=== PATIENT | female | born 1990 | race Caucasian/White ===

== ENCOUNTER 2019-12-11 09:06 | Inpatient (IN) | payer MEDICAID ==
[2019-12-04 15:47] LABS: BASOPHILS # (AUTO) 0.1 X10'3 (0-0.2); BASOPHILS % (AUTO) 0.8 % (0-1); EOSINOPHILS # (AUTO) 0.1 X10'3 (0-0.9); EOSINOPHILS % (AUTO) 0.7 % (0-6); LYMPHOCYTES # (AUTO) 1.4 X10'3 (1.1-4.8); LYMPHOCYTES % (AUTO) 20.8 % (21-51); MEAN CORPUSCULAR HEMOGLOBIN 29.7 PG (27.0-31.0); MEAN CORPUSCULAR HGB CONC 33.2 g/dL (33.0-36.5); MEAN CORPUSCULAR VOLUME 89.3 FL (78-98); MEAN PLATELET VOLUME 9.6 FL (7.4-10.4); MONOCYTES # (AUTO) 0.7 X10'3 (0-0.9); MONOCYTES % (AUTO) 10.5 % (2-12); NEUTROPHILS # (AUTO) 4.6 X10'3 (1.8-7.7); NEUTROPHILS % (AUTO) 67.2 % (42-75); PRE OP HEMATOCRIT 41.5 % (35.0-45.0); PRE OP HEMOGLOBIN 13.8 g/dL (12.0-16.0); PRE OP PLATELET COUNT 251 X10'3 (140-440); RED BLOOD COUNT 4.65 X10'6 (4.20-5.60); RED CELL DISTRIBUTION WIDTH 14.4 % (11.5-14.5)
[2019-12-04 16:01] LABS: PRE OP PROTIME 10.4 SECONDS (9.0-12.0)
[2019-12-04 16:05] LABS: ALBUMIN 3.6 G/DL (3.4-5.0); ALBUMIN/GLOBULIN RATIO 1.1 (1.1-1.5); ALKALINE PHOSPHATASE 68 IU/L (46-116); BLOOD UREA NITROGEN 11 MG/DL (7-18); BUN/CREATININE RATIO 11.8 (6.6-38.0); CALCIUM 8.8 MG/DL (8.5-10.1); CHLORIDE 104 MMOL/L (99-107); CREATININE 0.93 MG/DL (0.40-0.90); PRE OP ALT 23 U/L (30-65); PRE OP ANION GAP 7 (8-16); PRE OP AST 21 U/L (10-37); PRE OP BILIRUB, TOTAL 0.8 MG/DL (0.0-1.0); PRE OP GLUCOSE 66 MG/DL (70-104); PRE OP POTASSIUM 3.6 MMOL/L (3.4-5.1); PRE OP SODIUM 141 MMOL/L (135-145); TOTAL CARBON DIOXIDE 30.3 MMOL/L (24-32); TOTAL PROTEIN 6.9 G/DL (6.4-8.2); eGFR 71 ML/MIN
[2019-12-04 16:35] LABS: HCG SERUM QL NEGATIVE
[~2019-12-11] VITALS: Ht 175.3 cm; Wt 75.0 kg
[2019-12-11] VITALS (22 sets, daily range): BP systolic 65–149; BP diastolic 42–88
[~2019-12-11 09:06] MED LIST: NO HOME MEDS; albuterol 2.5 MG/3 ML nebule NEB ONE; ceFAZolin 2gm in dextrose, iso 50 ML IV ONE; famotidine 20mg tablet PO ONE
[2019-12-11] MEDS: ringers solution, lacted 1,000 ML IV SCH ×2 (09:50→20:21)
[2019-12-11] MEDS: morphine 4 MG/ML inj SYRINge IV PRN ×2 (12:56→13:14)
--- NOTE | 2019-12-11 13:15 | NUR ---
PT SURGERY TIME DELAYED. PT CRYING/ANXIOUS, C/O 10/10 LEFT LOWER ABD/FLANK PAIN. DR WALDROP NOTIFIED. MEDICATED IV X2 FOR PAIN WITH GOOD RELIEF. CURRENTLY STATES ADEQUATE PAIN RELIEF 4/10 SCALE. CALM AFFECT, ON PHONE COMMUNICATING WITH FAMILY MEMBERS.
[2019-12-11] MEDS ORDERED: BUPIVAcaine/PF 2.5 mg/ml (0.25%) 30ml vial ONE (13:19)
[2019-12-11] MEDS ORDERED: BUPIVACAINE liposomal/PF 13.3 MG/ML vial IM ONE (13:19)
[2019-12-11] MEDS ORDERED: midazolam 2 mg/2 ml injection ONE (13:33)
[2019-12-11] MEDS ORDERED: LIDOcaine 2% (20mg/ml) 5ml vial ONE (13:33)
[2019-12-11] MEDS ORDERED: fentaNYL /PF 50mcg/ml 5ml ampule ONE (13:33)
[2019-12-11] MEDS ORDERED: ondansetron/PF 4mg/2ml inj ONE (13:34)
[2019-12-11] MEDS ORDERED: rocuronium 10mg/ml inj IV ONE ×2 (13:34→16:50)
[2019-12-11] MEDS ORDERED: propofol inj 20 ML IV ONE (13:34)
[2019-12-11] MEDS ORDERED: ringers solution, lacted 1,000 ML IV SCH (13:36)
[2019-12-11] MEDS ORDERED: fentaNYL/PF 50MCG/1 ML 2ML syringe IV PRN (13:40)
[2019-12-11] MEDS ORDERED: hydrALAZINE 20mg/ml inj. IV PRN (13:40)
[2019-12-11] MEDS ORDERED: morphine 4 MG/ML inj SYRINge IV PRN (13:40)
[2019-12-11] MEDS ORDERED: ondansetron/PF 4mg/2ml inj IV PRN ×2 (13:40→17:25)
[2019-12-11] MEDS ORDERED: morphine 2 MG/ML inj. syringe IV PRN (13:40)
[2019-12-11] MEDS ORDERED: labetalol 20mg/4ml (5mg/ml) syringe IV PRN (13:40)
--- NOTE | 2019-12-11 17:21 | NUR ---
Received from OR via BED, accompanied by Anesthesiologist DR WALDROP and report given by Anesthesiologist. PT DROWSY, ISLAND DRSG TO LEFT UPPER ABDOMEN CDI, BANDAID TO LEFT LATERAL ABDOMEN CDI, AREAS SOFT. BAE CATHETER TO GRAVITY DRAINAGE W/YELLOW URINE IN DRAINAGE BAG. Addendum: 12/11/19 at 1807 by Kristen Rodríguez RN Amended: Links added.
[2019-12-11] MEDS ORDERED: CADD PCA waste documentation MC PRN (17:25)
[2019-12-11] MEDS ORDERED: naloxone 0.4 mg/ml inj IV PRN (17:25)
[2019-12-11] MEDS: fentaNYL/PF 50MCG/1 ML 2ML syringe IV PRN ×2 (18:10→18:27)
[2019-12-11] MEDS: HYDROmorphone/NS 1 mg/ml CADD 50 ML IV SCH ×4 (18:42→23:00)
--- NOTE | 2019-12-11 19:00 | NUR ---
Received report from Kristen LOPEZ from recovery. Patient arrived at 1920 on a gurney, lactate ringer running, 2L oxygen, a/o, vss, no sighns of distress will continue to monitor
--- NOTE | 2019-12-11 19:20 | NUR ---
patient also had a cadd when arived at med/surg
--- NOTE | 2019-12-11 19:21 | NUR ---
Report called to receiving nurse. Transferred via BED, CELL PHONE AND 1 BAG OF Belongings SENT W/PT TO ROOM 340A, PAIN IMPROVING W/KRISTIN GALLEGOS, RECEIVING RN AT BEDSIDE TO RECEIVE PT, BLL, CALL LIGHT GIVEN, SIDE RAILS UP X 2. Special Issues communicated to receiving nurse. YES. Addendum: 12/11/19 at 1940 by Kristen Rodríguez RN Amended: Links added.
[2019-12-12] VITALS: BP 109/62
[2019-12-12] MEDS: HYDROmorphone/NS 1 mg/ml CADD 50 ML IV SCH ×12 (00:40→23:00)
[2019-12-12 03:49] VITALS: BP 105/62
[2019-12-12 05:16] LABS: ALBUMIN 3.1 G/DL (3.4-5.0); ANION GAP 7 (8-16); BASOPHILS % (AUTO) 0.2 % (0-1); BLOOD UREA NITROGEN 11 MG/DL (7-18); BUN/CREATININE RATIO 11.6 (6.6-38.0); CALCIUM 8.4 MG/DL (8.5-10.1); CHLORIDE 107 MMOL/L (99-107); CREATININE 0.95 MG/DL (0.40-0.90); EOSINOPHILS % (AUTO) 0 % (0-6); GLUCOSE 108 MG/DL (70-104); HEMOGLOBIN 12.4 g/dl (12.0-16.0); LYMPHOCYTES # (AUTO) 0.7 X10'3 (1.1-4.8); LYMPHOCYTES % (AUTO) 5.3 % (21-51); MEAN CORPUSCULAR HEMOGLOBIN 29.2 PG (27.0-31.0); MEAN CORPUSCULAR HGB CONC 32.7 g/dL (33.0-36.5); MEAN CORPUSCULAR VOLUME 89.3 FL (78-98); MEAN PLATELET VOLUME 10.2 FL (7.4-10.4); MONOCYTES # (AUTO) 0.9 X10'3 (0-0.9); MONOCYTES % (AUTO) 6.5 % (2-12); NEUTROPHILS # (AUTO) 11.5 X10'3 (1.8-7.7); PLATELET COUNT 247 X10'3 (140-440); POTASSIUM 4.1 MMOL/L (3.5-5.1); RED BLOOD COUNT 4.25 X10'6 (4.20-5.60); RED CELL DISTRIBUTION WIDTH 14.4 % (11.5-14.5); SODIUM 141 MMOL/L (135-145); TOTAL CARBON DIOXIDE 26.8 MMOL/L (24-32); WHITE BLOOD COUNT 13.1 X10'3 (4.5-11.0); eGFR 70 ML/MIN
--- NOTE | 2019-12-12 05:53 | NUR ---
patient was picking at her neck and removed part of the tagaderm, replaced it with a new one. Patient handled it well will continue to monitor
--- NOTE | 2019-12-12 06:33 | NUR ---
Problems reprioritized. Patient report given, questions answered & plan of care reviewed with Zahida LOPEZ.
[2019-12-12 07:00] VITALS: BP 106/51
[2019-12-12 11:48] VITALS: BP 125/79
[2019-12-12 18:00] VITALS: BP 116/58
--- NOTE | 2019-12-12 18:00 | NUR ---
Patient in room [facility]. I have received report from Zahida LOPEZ and had the opportunity to ask questions and assume patient care.
--- NOTE | 2019-12-12 18:37 | NUR ---
Problems reprioritized. Patient report given, questions answered & plan of care reviewed with micki armijo.
[2019-12-12 23:58] VITALS: BP 120/80
[2019-12-13] MEDS: HYDROmorphone/NS 1 mg/ml CADD 50 ML IV SCH ×4 (01:00→07:00)
[2019-12-13 04:33] LABS: BASOPHILS % (AUTO) 0.4 % (0-1); EOSINOPHILS % (AUTO) 0.5 % (0-6); HEMATOCRIT 33.6 % (35.0-45.0); HEMOGLOBIN 11.2 g/dl (12.0-16.0); LYMPHOCYTES # (AUTO) 1.6 X10'3 (1.1-4.8); LYMPHOCYTES % (AUTO) 32.5 % (21-51); MEAN CORPUSCULAR HEMOGLOBIN 29.5 PG (27.0-31.0); MEAN CORPUSCULAR HGB CONC 33.2 g/dL (33.0-36.5); MEAN CORPUSCULAR VOLUME 88.9 FL (78-98); MEAN PLATELET VOLUME 9.8 FL (7.4-10.4); MONOCYTES # (AUTO) 0.6 X10'3 (0-0.9); MONOCYTES % (AUTO) 11.5 % (2-12); NEUTROPHILS # (AUTO) 2.7 X10'3 (1.8-7.7); NEUTROPHILS % (AUTO) 55.1 % (42-75); PLATELET COUNT 170 X10'3 (140-440); RED BLOOD COUNT 3.78 X10'6 (4.20-5.60)
[2019-12-13 04:42] LABS: ALBUMIN 2.9 G/DL (3.4-5.0); ANION GAP 3 (8-16); BLOOD UREA NITROGEN 7 MG/DL (7-18); BUN/CREATININE RATIO 8.5 (6.6-38.0); CALCIUM 8.4 MG/DL (8.5-10.1); CHLORIDE 107 MMOL/L (99-107); CREATININE 0.82 MG/DL (0.40-0.90); GLUCOSE 89 MG/DL (70-104); POTASSIUM 3.6 MMOL/L (3.5-5.1); SODIUM 141 MMOL/L (135-145); eGFR 82 ML/MIN
--- NOTE | 2019-12-13 06:25 | NUR ---
Problems reprioritized. Patient report given, questions answered & plan of care reviewed with Alison LOPEZ.
--- NOTE | 2019-12-13 06:33 | NUR ---
Patient in room [facility]. I have received report from Jackelyn LOPEZ and had the opportunity to ask questions and assume patient care.
[2019-12-13] MEDS ORDERED: docusate sod 250mg capsule PO SCH (08:00)
[2019-12-13] MEDS ORDERED: HYDR-4383 PO (08:14)
[2019-12-13 09:01] VITALS: BP 105/55
--- NOTE | 2019-12-13 11:10 | NUR ---
Patient discharge. Assisted to lobby, ambulated independently with tech. Patient IV discontinued, patient tolerated well, no issues. All education completed with verbal acknowledgement completed. Patient with scrip from MD in hand for pain medication, copy in chart. Patient has all belongings.
--- NOTE | 2019-12-13 11:10 | NUR ---
DC left PIV & Central line, both were intact. pt tolerated removal of central line well.
== END 2019-12-13 11:28 | disposition home or self-care (01) | DRG 443 ==
LOC: UNDOADMIN 09:06 → PAS IN 09:06 → EDSTATUS 10:45 → PAS IN 17:24 → SUR 3N 19:20 → PAS IN 19:20
PROVIDERS: ADMIT Urology; ATTEND Urology
PROC: 3E0T3BZ Introduction of Anesthetic Agent into Peripheral Nerves and Plexi, Percutaneous Approach (ICD-10-PCS; 2019-12-11)
PROC: 02HV33Z Insertion of Infusion Device into Superior Vena Cava, Percutaneous Approach (ICD-10-PCS; 2019-12-11)
PROC: B548ZZA Ultrasonography of Superior Vena Cava, Guidance (ICD-10-PCS; 2019-12-11)
PROC: 03HY32Z Insertion of Monitoring Device into Upper Artery, Percutaneous Approach (ICD-10-PCS; 2019-12-11)
PROC: 4A133B1 Monitoring of Arterial Pressure, Peripheral, Percutaneous Approach (ICD-10-PCS; 2019-12-11)
PROC: 4A133J1 Monitoring of Arterial Pulse, Peripheral, Percutaneous Approach (ICD-10-PCS; 2019-12-11)
PROC: 0TT14ZZ Resection of Left Kidney, Percutaneous Endoscopic Approach (ICD-10-PCS; principal; 2019-12-11 13:40)
DX: N13.1 Hydronephrosis with ureteral stricture, not elsewhere classified (principal)
CPT/HCPCS: 36415; 71045; 71046; 80048; 80053; 82948; 84703; 85025; 85610; 85730; 86885; 86900; 86901; 87081; 93005; A4215; A4618; A7000; C1751; C1758; C9290; G0378; J1170; J2001; J2250; J2270; J2405; J2704; J3010; J3490; J7030; J7120

== ENCOUNTER 2020-04-09 11:05 | Emergency (ER) | payer MEDICAID ==
[~2020-04-09] VITALS: Ht 175.3 cm; Wt 75.0 kg
[~2020-04-09 11:05] MED LIST changes: +HYDR-4383 PO; -albuterol 2.5 MG/3 ML nebule NEB ONE; -ceFAZolin 2gm in dextrose, iso 50 ML IV ONE; -famotidine 20mg tablet PO ONE
[2020-04-09] MEDS ORDERED: LORazepam 2 mg/ml vial IM ONE (12:05)
--- NOTE | 2020-04-09 12:35 | NUR ---
PT TO CT VIA [facility] WITH PROFESSOR OF BIOSTATISTICS
[2020-04-09 12:53] LABS: BASOPHILS # (AUTO) 0.1 X10'3 (0-0.2); BASOPHILS % (AUTO) 0.8 % (0-1); EOSINOPHILS # (AUTO) 0.1 X10'3 (0-0.9); EOSINOPHILS % (AUTO) 1.6 % (0-6); HEMATOCRIT 38.9 % (35.0-45.0); HEMOGLOBIN 12.6 g/dl (12.0-16.0); LYMPHOCYTES # (AUTO) 1.4 X10'3 (1.1-4.8); LYMPHOCYTES % (AUTO) 15.9 % (21-51); MEAN CORPUSCULAR HEMOGLOBIN 29.4 PG (27.0-31.0); MEAN CORPUSCULAR HGB CONC 32.5 g/dL (33.0-36.5); MEAN CORPUSCULAR VOLUME 90.6 FL (78-98); MEAN PLATELET VOLUME 10.4 FL (7.4-10.4); MONOCYTES # (AUTO) 0.6 X10'3 (0-0.9); MONOCYTES % (AUTO) 6.3 % (2-12); NEUTROPHILS # (AUTO) 6.5 X10'3 (1.8-7.7); NEUTROPHILS % (AUTO) 75.4 % (42-75); PLATELET COUNT 190 X10'3 (140-440); RED BLOOD COUNT 4.29 X10'6 (4.20-5.60); RED CELL DISTRIBUTION WIDTH 15.3 % (11.5-14.5); WHITE BLOOD COUNT 8.7 X10'3 (4.5-11.0)
[2020-04-09 13:06] LABS: ALANINE AMINOTRANSFERASE 17 U/L (12-78); ALBUMIN 3.1 G/DL (3.4-5.0); ALBUMIN/GLOBULIN RATIO 1.1 (1.1-1.5); ALKALINE PHOSPHATASE 64 IU/L (46-116); ANION GAP 10 (8-16); ASPARTATE AMINO TRANSFERASE 16 U/L (10-37); BILIRUBIN,TOTAL 0.2 MG/DL (0.1-1.0); BLOOD UREA NITROGEN 14 MG/DL (7-18); BUN/CREATININE RATIO 17.3 (6.6-38.0); CALCIUM 7.9 MG/DL (8.5-10.1); CHLORIDE 113 MMOL/L (99-107); CREATININE 0.81 MG/DL (0.40-0.90); GLUCOSE 79 MG/DL (70-104); POTASSIUM 4.2 MMOL/L (3.5-5.1); SODIUM 145 MMOL/L (135-145); TOTAL CARBON DIOXIDE 22.2 MMOL/L (24-32); eGFR 84 ML/MIN
--- NOTE | 2020-04-09 13:49 | NUR ---
[facility] CALLED [phone] THEY ARE SENDING SOMEONE TO [facility].
[2020-04-09 13:53] VITALS: BP 151/76
== END 2020-04-09 14:36 | disposition home or self-care (01) ==
LOC: ER 11:05
DX: G40.909 Epilepsy, unspecified, not intractable, without status epilepticus (principal); R52 Pain, unspecified; F15.90 Other stimulant use, unspecified, uncomplicated; Z86.69 Personal history of other diseases of the nervous system and sense organs; Z72.89 Other problems related to lifestyle; Z79.899 Other long term (current) drug therapy
CPT/HCPCS: 36415; 70450; 72125; 80053; 85025; 93005; 96372; 99285; J2060

== ENCOUNTER 2020-04-17 21:18 | Emergency (ER) | payer MEDICAID ==
[~2020-04-17] VITALS: Ht 175.3 cm; Wt 77.3 kg
--- NOTE | 2020-04-17 21:20 | NUR ---
cervical collar in place from EMS
--- NOTE | 2020-04-17 21:33 | NUR ---
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
--- NOTE | 2020-04-17 21:35 | NUR ---
patient denies positive covid result on 04/06/20 [facility]
[2020-04-17] MEDS ORDERED: acetaminophen 325mg tablet PO ONE (21:55)
[2020-04-17 21:59] LABS: BASOPHILS # (AUTO) 0.1 X10'3 (0-0.2); BASOPHILS % (AUTO) 0.9 % (0-1); EOSINOPHILS # (AUTO) 0.1 X10'3 (0-0.9); EOSINOPHILS % (AUTO) 0.8 % (0-6); HEMATOCRIT 36.7 % (35.0-45.0); HEMOGLOBIN 12.2 g/dl (12.0-16.0); LYMPHOCYTES # (AUTO) 2.1 X10'3 (1.1-4.8); LYMPHOCYTES % (AUTO) 27.2 % (21-51); MEAN CORPUSCULAR HEMOGLOBIN 29.5 PG (27.0-31.0); MEAN CORPUSCULAR HGB CONC 33.2 g/dL (33.0-36.5); MEAN CORPUSCULAR VOLUME 88.7 FL (78-98); MEAN PLATELET VOLUME 9.6 FL (7.4-10.4); MONOCYTES # (AUTO) 0.5 X10'3 (0-0.9); MONOCYTES % (AUTO) 6.2 % (2-12); NEUTROPHILS # (AUTO) 4.9 X10'3 (1.8-7.7); NEUTROPHILS % (AUTO) 64.9 % (42-75); PLATELET COUNT 253 X10'3 (140-440); RED BLOOD COUNT 4.14 X10'6 (4.20-5.60); RED CELL DISTRIBUTION WIDTH 15.4 % (11.5-14.5); WHITE BLOOD COUNT 7.6 X10'3 (4.5-11.0)
[2020-04-17 22:15] LABS: ALANINE AMINOTRANSFERASE 30 U/L (12-78); ALBUMIN 3.2 G/DL (3.4-5.0); ALBUMIN/GLOBULIN RATIO 1.1 (1.1-1.5); ALKALINE PHOSPHATASE 70 IU/L (46-116); ANION GAP 6 (8-16); ASPARTATE AMINO TRANSFERASE 13 U/L (10-37); BILIRUBIN,TOTAL 0.1 MG/DL (0.1-1.0); BLOOD UREA NITROGEN 21 MG/DL (7-18); BUN/CREATININE RATIO 26.9 (6.6-38.0); CALCIUM 8.8 MG/DL (8.5-10.1); CHLORIDE 109 MMOL/L (99-107); CREATININE 0.78 MG/DL (0.40-0.90); GLUCOSE 99 MG/DL (70-104); POTASSIUM 3.6 MMOL/L (3.5-5.1); SODIUM 142 MMOL/L (135-145); TOTAL CARBON DIOXIDE 26.9 MMOL/L (24-32); TOTAL PROTEIN 6.2 G/DL (6.4-8.2); eGFR 87 ML/MIN
[2020-04-17 22:26] LABS: ETHANOL < 0.010 GM/DL (0.0-0.010)
[2020-04-17] MEDS ORDERED: ketorolac trometh. 30mg/ml inj. IV ONE (22:30)
[2020-04-17] MEDS ORDERED: LORazepam 2 mg/ml vial IV ONE (22:30)
--- NOTE | 2020-04-17 22:49 | NUR ---
Pt went to CT.
[2020-04-17] MEDS ORDERED: LEVE10006 PO (23:02)
[2020-04-17] MEDS ORDERED: HYDR-3686 PO (23:02)
[2020-04-17 23:11] LABS: URINE HCG NEGATIVE (NEG)
[2020-04-17 23:13] LABS: CLARITY,URINE SLIGHTLY CLOUDY (Clear); COLOR,URINE YELLOW (Yellow); GLUCOSE, URINE NEGATIVE (Neg); KETONES,URINE NEGATIVE (Neg); LEUKOCYTE ESTERASE ,URINE SMALL (Neg); NITRITES, URINE NEGATIVE (Neg); OCCULT BLOOD,URINE NEGATIVE (Neg); PROTEIN,URINE NEGATIVE (Neg); UROBILINOGEN,URINE 0.2 E.U/dL (0.2-1.0)
[2020-04-17 23:20] LABS: UA COLLECTION TYPE VOIDED
[2020-04-17 23:21] LABS: BACTERIA,URINE FEW /HPF (Neg); RBC,URINE 0-2 /HPF (0-2); SQUAMOUS EPITHELIAL CELL,UR FEW /LPF (FEW); WBC CLUMPS,URINE FEW /HPF (NEGATIVE); WBC,URINE 20-30 /HPF (0-4)
[2020-04-17 23:40] LABS: URINE AMPHETAMINE SCREEN NEGATIVE (Neg); URINE BARBITUATE SCREEN NEGATIVE (Neg); URINE BENZODIAZEPINES SCREEN NEGATIVE (Neg); URINE CANNABINOID SCREEN NEGATIVE (Neg); URINE COCAINE SCREEN NEGATIVE (Neg); URINE METHADONE SCREEN NEGATIVE (Neg); URINE OPIATE SCREEN NEGATIVE (Neg); URINE PHENCYCLIDINE SCREEN NEGATIVE (Neg)
[2020-04-18 00:42] VITALS: BP 107/52
[2020-04-20] MEDS ORDERED: CHLO25CA10 PO (13:01)
[2020-04-20] MEDS ORDERED: QUET50TA PO (13:01)
== END 2020-04-18 00:45 | disposition home or self-care (01) ==
LOC: ER 21:18
DX: T14.90XA Injury, unspecified, initial encounter (principal); R56.9 Unspecified convulsions; M54.2 Cervicalgia; M54.5 Low back pain; F17.200 Nicotine dependence, unspecified, uncomplicated; F15.10 Other stimulant abuse, uncomplicated; Z79.899 Other long term (current) drug therapy; W18.39XA Other fall on same level, initial encounter; Y93.89 Activity, other specified; Y92.89 Other specified places as the place of occurrence of the external cause; Y99.8 Other external cause status
CPT/HCPCS: 36415; 70450; 72100; 72125; 80053; 80305; 80320; 81001; 81025; 85025; 87077; 87088; 87186; 93005; 96374; 96375; 99285; J1885; J2060

== ENCOUNTER 2020-04-26 12:25 | Emergency (ER) | payer MEDICAID ==
[~2020-04-26] VITALS: Ht 175.3 cm; Wt 90.0 kg
[~2020-04-26 12:25] MED LIST changes: +CHLO25CA10 PO; +HYDR-3686 PO; -HYDR-4383 PO; +LEVE10006 PO; -NO HOME MEDS; +QUET50TA PO
[2020-04-26 13:24] VITALS: BP 155/85
--- NOTE | 2020-04-26 13:49 | NUR ---
pt was crying and having anxiety in triage. pt is now outside smoking talking with her friend very calm, no signs of anxiety or agitation
== END 2020-04-26 19:32 | disposition left against medical advice (07) ==
LOC: ER 12:26
DX: F41.9 Anxiety disorder, unspecified (principal); Z53.21 Procedure and treatment not carried out due to patient leaving prior to being seen by health care provider